=== PATIENT | female | born 1945 | race Caucasian/White ===

== ENCOUNTER → 2017-01-19 | Outpatient (CLI) | payer MEDICARE ==
--- NOTE | 2017-01-20 09:38 | MM ---
Reason for exam: screening (asymptomatic). Last mammogram was performed 1 year ago. History: Patient is postmenopausal. Taking estrogen for 5 years. Taking progesterone. Taking other hormone for 5 years. Physical Findings: A clinical breast exam by your physician is recommended on an annual basis and results should be correlated with mammographic findings. MG 3D Screening Mammo W/Cad Bilateral CC and MLO view(s) were taken. Prior study comparison: January 18, 2016, bilateral MG 3d screening mammo w/cad. January 15, 2015, bilateral MG screening mammo w CAD. The breast tissue is heterogeneously dense. This may lower the sensitivity of mammography. There are typically benign round calcifications in both breasts. There is no discrete abnormality. ASSESSMENT: Benign, BI-RAD 2 RECOMMENDATION: Routine screening mammogram of both breasts in 1 year.
== END | disposition home or self-care (01) ==
LOC: RADMAMWWP 08:59
PROVIDERS: ATTEND Internal Medicine Geriatric Medicine
DX: Z12.31 Encounter for screening mammogram for malignant neoplasm of breast (principal)
CPT/HCPCS: 77063; G0202

== ENCOUNTER → 2018-02-07 | Outpatient (CLI) | payer MEDICARE ==
--- NOTE | 2018-02-07 14:33 | XR ---
Cervical spine HISTORY: Neck pain 5 views of the cervical spine There is multilevel spondylosis and loss of disc height especially C3-4, C4-5, C5-6 and C6-7. Minimal retrolisthesis grade 1 C3-4, C4-5, anterolisthesis grade 1 C2-3, C7-T1. Surgical clips present in th e neck. Multilevel facet arthropathy. Bone mineralization is reduced. Vertebral body height is mainta ined. Foraminal encroachment present at C3-4, C4-5, C5-6 and C6-7 bilaterally. Vascular calcification s noted in the distribution of the carotid arteries. Lung apices are unremarkable. Odontoid view is l imited. IMPRESSION: Degenerative disc disease, facet arthropathy, neural foraminal encroachment.
--- NOTE | 2018-02-07 15:22 | FL ---
EXAMINATION TYPE: FL barium swallow DATE OF EXAM: 02/07/2018 COMPARISON: None HISTORY: GERD with esophagitis, history of hiatal hernia repair TECHNIQUE: A air contrast esophagram study is performed. FINDINGS: Fluoroscopy time: 1.03 minutes. Images: 27 Esophagus dilates to a normal caliber, has normal contour to the distal esophagus. At the distal esop hagus a large hiatal hernia is evident above the diaphragm. The esophagus enters the hiatal hernia ne ar the gastroesophageal junction region. Findings may be related to prior Edward fundoplication. Cont rast extends into the stomach as well as filling the hiatal hernia. IMPRESSIONS: 1. Moderately large hiatal hernia. 2. Postsurgical changes at the gastroesophageal junction
== END ==
LOC: RADFLWHC 09:18
PROVIDERS: ATTEND Internal Medicine Geriatric Medicine
DX: K44.9 Diaphragmatic hernia without obstruction or gangrene (principal); M50.31 Other cervical disc degeneration, high cervical region; M46.92 Unspecified inflammatory spondylopathy, cervical region; Z98.890 Other specified postprocedural states
CPT/HCPCS: 72050; 74220

== ENCOUNTER → 2018-02-19 | Outpatient (CLI) | payer MEDICARE ==
--- NOTE | 2018-02-19 09:39 | CT ---
EXAMINATION TYPE: CT abdomen pelvis wo con DATE OF EXAM: 02/19/2018 COMPARISON: None HISTORY: Lt flank pain, hematuria CT DLP: 356.1 mGycm Automated exposure control for dose reduction was used. TECHNIQUE: Helical acquisition of images from the lung bases through the pelvis. FINDINGS: Lack of intravenous contrast could compromise sensitivity of the exam. LUNG BASES: No significant abnormality is appreciated. AORTA: No significant abnormality is appreciataed. LIVER/GB: No significant abnormality is appreciated. PANCREAS: No significant abnormality is seen. SPLEEN: No significant abnormality is seen. ADRENALS: No significant abnormality is seen. KIDNEYS: No hydronephrosis. No hydroureter. The level of the distal left ureteral orifice suspect the re is a punctate calcification measuring only 1 to 2 mm. REPRODUCTIVE ORGANS: Not seen.. URINARY BLADDER: No significant abnormality is seen. BOWEL: No significant abnormality is seen. There is redundancy noted in the duodenum. FREE AIR: No Free Air is visible. ASCITES: None visible. PELVIC ADENOPATHY: None visualized. RETROPERITONEAL ADENOPATHY: No Retroperitoneal Adenopathy visible. OSSEOUS STRUCTURES: No significant abnormality is seen. IMPRESSION: NONOBSTRUCTIVE DISTAL LEFT URETERAL CALCULUS IS SUSPECTED. NONCONTRAST EXAM. PARTIAL INTRATHORACIC ST OMACH, PARAESOPHAGEAL HERNIA.
== END | disposition home or self-care (01) ==
LOC: RADCTMAIN 08:09
PROVIDERS: ATTEND Internal Medicine Geriatric Medicine
DX: K44.9 Diaphragmatic hernia without obstruction or gangrene (principal); N20.0 Calculus of kidney
CPT/HCPCS: 74176

== ENCOUNTER → 2018-03-06 | Outpatient (CLI) | payer MEDICARE ==
--- NOTE | 2018-03-06 15:31 | BD ---
EXAMINATION TYPE: Axial Bone Density DATE OF EXAM: 03/06/2018 CLINICAL HISTORY: Postmenopausal female. Osteoporosis screening. Height: 61.25 Weight: 158 FRAX RISK QUESTIONS: Alcohol (3 or more units per day): no Family History (Parent hip fracture): no Glucocorticoids (More than 3mos): no (Ex: prednisone, prednisolone, methylprednisolone, dexamethasone, and hydrocortisone). History of Fracture in Adulthood: no Secondary Osteoporosis: 1. Type 1 Diabetes: no 2. Hyperthyroidism: no 3. Menopause before 45: no 4. Malnutrition: no 5. Chronic liver disease: no Rheumatoid Arthritis: no Current Tobacco Use: no RISK FACTORS HISTORY OF: Family History of Osteoporosis: no Active: yes Diet low in dairy products/other sources of calcium: yes Postmenopausal woman: yes Take estrogen and/or progesterone medications: yes How long: about 18 years Lost more than 2 inches in height since high school: no Frequent falls: no Poor Health: no Hyperparathyroidism: no Adrenal Insufficiency: no MEDICATIONS: Prednisone or other steroids: no Thyroid Medications: no Osteoporosis Medications: no Additional Medications: Vitamin D Additional History: EXAM MEASUREMENTS: Bone mineral densitometry was performed using the [employer] System. Bone mineral density as measured about the Lumbar spine is: ----- L1-L4(G/cm2): 1.191 T Score Values are as follows: ----- L2: 0.1 ----- L3: 0.4 ----- L4: 0.3 ----- L1-L4: 0.1 Bone mineral density has: Increased 5.6% since study of: 01/18/2016 Bone mineral density about the R hip (g/cm2): 0.995 Bone mineral density about the L hip (g/cm2): 0.867 T Score values are as follows: -----R Neck: -0.3 -----L Neck: -1.2 -----R Total: 0.4 -----L Total: 0.3 Bone mineral density has: Increased 0.9% since study of: 01/18/2016 IMPRESSION: Osteopenia (T Score between -2.5 and -1). There is slightly increased risk of fracture and the patient may be considered for treatment. Re-Screen 2-5 years. NOTE: T-SCORE=SD OF THE YOUNG ADULT MEAN.
--- NOTE | 2018-03-07 12:56 | MM ---
Reason for exam: screening (asymptomatic). Last mammogram was performed 1 year and 2 months ago. History: Patient is postmenopausal. Taking estrogen for 5 years. Taking progesterone. Taking other hormone for 5 years. Physical Findings: A clinical breast exam by your physician is recommended on an annual basis and results should be correlated with mammographic findings. MG 3D Screening Mammo W/Cad Bilateral CC and MLO view(s) were taken. Prior study comparison: January 19, 2017, bilateral MG 3d screening mammo w/cad. January 18, 2016, bilateral MG 3d screening mammo w/cad. The breast tissue is heterogeneously dense. This may lower the sensitivity of mammography. There are benign appearing round calcifications bilaterally. There is no discrete abnormality. ASSESSMENT: Benign, BI-RAD 2 RECOMMENDATION: Routine screening mammogram of both breasts in 1 year.
== END | disposition home or self-care (01) ==
LOC: RADMAMWWP 11:42
PROVIDERS: ATTEND Internal Medicine Geriatric Medicine
DX: Z12.31 Encounter for screening mammogram for malignant neoplasm of breast (principal); M85.852 Other specified disorders of bone density and structure, left thigh
CPT/HCPCS: 77063; 77067; 77080

== ENCOUNTER → 2019-03-07 | Outpatient (CLI) | payer MEDICARE ==
--- NOTE | 2019-03-08 11:38 | MM ---
Reason for exam: screening (asymptomatic). Last mammogram was performed 1 year ago. History: Patient is postmenopausal. Taking estrogen for 5 years. Taking progesterone. Taking other hormone for 5 years. Physical Findings: A clinical breast exam by your physician is recommended on an annual basis and results should be correlated with mammographic findings. MG 3D Screening Mammo W/Cad Bilateral CC and MLO view(s) were taken. Prior study comparison: March 06, 2018, bilateral MG 3d screening mammo w/cad. January 19, 2017, bilateral MG 3d screening mammo w/cad. There are scattered fibroglandular densities. There are benign appearing round calcifications bilaterally. There is no discrete abnormality. ASSESSMENT: Benign, BI-RAD 2 RECOMMENDATION: Routine screening mammogram of both breasts in 1 year.
== END | disposition home or self-care (01) ==
LOC: RADMAMWWP 13:25
PROVIDERS: ATTEND Internal Medicine Geriatric Medicine
DX: Z12.31 Encounter for screening mammogram for malignant neoplasm of breast (principal)
CPT/HCPCS: 77063; 77067

== ENCOUNTER → 2019-11-04 | Outpatient (CLI) | payer MEDICARE ==
--- NOTE | 2019-11-05 10:10 | MM ---
Reason for exam: clinical finding. Last mammogram was performed 8 months ago. History: Patient is postmenopausal. Taking estrogen for 5 years. Taking progesterone. Taking other hormone for 5 years. Indicated problem(s): lump or thickening in the left breast. Physical Findings: Nurse did not find any significant physical abnormalities on exam. MG 3D Diag Mammo W/Cad LT CC and MLO view(s) were taken of the left breast. Prior study comparison: March 07, 2019, bilateral MG 3d screening mammo w/cad. March 06, 2018, bilateral MG 3d screening mammo w/cad. There are scattered fibroglandular densities. Scattered benign punctate and oil cyst calcifications. No significant new findings when compared with previous films. These results were verbally communicated with the patient and result sheet given to the patient on 11/04/19. ASSESSMENT: Incomplete: need additional imaging evaluation, BI-RAD 0 RECOMMENDATION: Ultrasound of the left breast. (physician palpated 7-8 o'clock area and patient palpated subareolar area)
--- NOTE | 2019-11-05 10:13 | USB ---
Reason for exam: additional evaluation requested from abnormal screening. History: Patient is postmenopausal. Taking estrogen for 5 years. Taking progesterone. Taking other hormone for 5 years. US Breast Limited LT Left limited breast ultrasound including focal area of concern, retroareolar and axilla demonstrates a 1.5 x 1.8 x 0.5cm focal duct ectasia behind the nipple with internal echoes at 9 o'clock, likely debris. No vascularity or convincing nodularity. Scanned 6-9 o'clock. These results were verbally communicated with the patient and result sheet given to the patient on 11/04/19. ASSESSMENT: Probably benign, BI-RAD 3 RECOMMENDATION: Follow-up diagnostic mammogram of both breasts in 4 months. Back on schedule for February 2020. Ultrasound of the left breast in 4 months.
== END | disposition home or self-care (01) ==
LOC: RADMAMWWP 13:16
PROVIDERS: ATTEND Family Medicine
DX: R92.8 Other abnormal and inconclusive findings on diagnostic imaging of breast (principal); N63.10 Unspecified lump in the right breast, unspecified quadrant; N63.11 Unspecified lump in the right breast, upper outer quadrant
CPT/HCPCS: 77065; 76642; G0279; 77061

== ENCOUNTER 2019-12-11 09:22 | Day surgery (SDC) | payer MEDICARE ==
[2019-12-09 12:29] VITALS: BMI 28.6
[2019-12-11 10:06] VITALS: RESP 16; TEMP 96.4
[2019-12-11] MEDS ORDERED: LIDOCAINE 1% (10MG/ML) FOR IV START INTRADERMA ONE (10:09)
[2019-12-11] MEDS: LACTATED RINGERS 1,000 ML IV SCH ×2 (10:09→10:31)
[2019-12-11] MEDS ORDERED: PROPOFOL 10 MG/ML 20 ML VIAL IV ONE (10:33)
--- NOTE | 2019-12-11 10:54 | P.PCN ---
Date of Procedure: 12/11/19 Procedure(s) Performed: BRIEF HISTORY: Patient is a 74-year-old, pleasant, white female scheduled for an upper endoscopy as a part of evaluation of long-standing history of GERD and history of Amato's esophagus.. PROCEDURE PERFORMED: Esophagogastroduodenoscopy with biopsy. PREOPERATIVE DIAGNOSIS: Long-standing history of GERD and history of Amato's. IV sedation per anesthesia. PROCEDURE: After informed consent was obtained, the patient was brought into the endoscopy unit. IV sedation was administered by Anesthesia under continuous monitoring. Initially the Olympus GIF-140 video endoscope was inserted into the mouth. Esophagus intubated without any difficulty. It was gradually advanced in to the stomach and duodenum and carefully examined. The bulb and the second part of the duodenum appeared normal. The scope at this time was withdrawn to the stomach, adequately insufflated with air, and upon careful examination, mucosa of the antrum, had mild gastritis and biopsies were done from this area. The body, cardia and the fundus appeared normal. The scope was then withdrawn into the esophagus. The GE junction was located at 35 cm from the incisors and appeared slightly irregular but no obvious evidence of Amato's esophagus.. Moderate size hiatal hernia noted. The esophagus appeared normal. There were no erosions or ulcerations seen and the patient tolerated the procedure well. IMPRESSION: 1. Small to moderate size hiatal hernia. No evidence of Amato's esophagus 2. Mild antral gastritis. RECOMMENDATIONS: The findings of this examination were discussed with the patient as well as a family. She was advised to follow with the biopsy results. She will continue with diet modification with.
[2019-12-11 11:10] VITALS: PULSE 63
[2019-12-11 11:26] VITALS: BP 147/89
== END 2019-12-11 12:04 | disposition home or self-care (01) ==
LOC: ORWHC2ENDO 09:22
PROVIDERS: ATTEND Internal Medicine Gastroenterology
DX: K29.50 Unspecified chronic gastritis without bleeding (principal); K44.9 Diaphragmatic hernia without obstruction or gangrene; K22.8 Other specified diseases of esophagus; F32.9 Major depressive disorder, single episode, unspecified; K21.9 Gastro-esophageal reflux disease without esophagitis; Z79.1 Long term (current) use of non-steroidal anti-inflammatories (NSAID); Z79.890 Hormone replacement therapy; Z79.899 Other long term (current) drug therapy; Z90.710 Acquired absence of both cervix and uterus; Z98.890 Other specified postprocedural states; K29.70 Gastritis, unspecified, without bleeding
CPT/HCPCS: 88305; 88342; 43239; J2704

== ENCOUNTER → 2020-03-09 | Outpatient (CLI) | payer MEDICARE ==
--- NOTE | 2020-03-09 15:03 | MM ---
Reason for exam: follow-up at short interval from prior study. Last mammogram was performed 4 months ago. History: Patient is postmenopausal. Taking estrogen for 5 years. Took progesterone for 10 years. Taking other hormone for 5 years. Physical Findings: Nurse Summary: nodule in the left breast at 6 o'clock (nurse padmini). MG 3D Diag Mammo W/Cad ELISE Bilateral CC and MLO view(s) were taken. Prior study comparison: November 04, 2019, left breast MG 3d diag mammo w/cad LT. March 07, 2019, bilateral MG 3d screening mammo w/cad. March 06, 2018, bilateral MG 3d screening mammo w/cad. January 19, 2017, bilateral MG 3d screening mammo w/cad. There are scattered fibroglandular densities. Stable inferior asymmetric density right MLO view. Stable asymmetric density lateral left CC view. Palpable marker placed by nurse at 6 o'clock. No significant new findings when compared with previous films. These results were verbally communicated with the patient and result sheet given to the patient on 03/09/20. ASSESSMENT: Incomplete: need additional imaging evaluation, BI-RAD 0 RECOMMENDATION: Ultrasound of the left breast.
--- NOTE | 2020-03-09 15:05 | USB ---
Reason for exam: additional evaluation requested from abnormal screening. History: Patient is postmenopausal. Taking estrogen for 5 years. Took progesterone for 10 years. Taking other hormone for 5 years. US Breast LT Left complete breast ultrasound includes all four quadrants, the retroareolar region and axilla. Finding demonstrates a 1.8 x 0.4 x 2.0cm duct ectasia at the posterior nipple, unchanged. 1.1cm hypoechoic area within, likely debris, 6 month follow up to reassess this intraluminal material. These results were verbally communicated with the patient and result sheet given to the patient on 03/09/20. ASSESSMENT: Probably benign, BI-RAD 3 RECOMMENDATION: Ultrasound of the left breast in 6 months.
== END | disposition home or self-care (01) ==
LOC: RADMAMWWP 13:32
PROVIDERS: ATTEND Family Medicine
DX: N63.20 Unspecified lump in the left breast, unspecified quadrant (principal); R92.8 Other abnormal and inconclusive findings on diagnostic imaging of breast
CPT/HCPCS: 77066; 76641; G0279; 77062

== ENCOUNTER → 2020-09-09 | Outpatient (CLI) | payer MEDICARE ==
--- NOTE | 2020-09-09 10:37 | USB ---
Reason for exam: clinical finding. History: Patient is postmenopausal. Taking estrogen for 5 years. Took progesterone for 10 years. Taking other hormone for 5 years. Indicated problem(s): palpable abnormality in the left breast. Physical Findings: Nurse Summary: palpated while in seated position, area marked by BB (nurse padmini). US Breast LT Left complete breast ultrasound includes all four quadrants, the retroareolar region and axilla. Finding demonstrates a 0.6 x 1.0 x 1.2cm oval, mixed lesion and duct ectasia at the posterior nipple. These results were verbally communicated with the patient and result sheet given to the patient on 09/09/20. ASSESSMENT: Suspicious, BI-RAD 4 RECOMMENDATION: Ultrasound core biopsy of the left breast. Called office with mammographic findings and has scheduled an appointment for the patient for 09/09/20 at 10:[address] Felipe. PRELIMINARY REPORT CALLED AND FAXED TO DR. FELIPE ON 09/09/20.
== END | disposition home or self-care (01) ==
LOC: RADUSWWP 09:30
PROVIDERS: ATTEND Family Medicine
DX: R92.8 Other abnormal and inconclusive findings on diagnostic imaging of breast (principal)

== ENCOUNTER → 2020-11-13 | Day surgery (SDC) | payer MEDICARE ==
[2020-11-13 09:47] VITALS: BP 151/86; PULSE 72; RESP 16; TEMP 98.3
--- NOTE | 2020-11-13 11:58 | USB ---
Left breast ultrasound INDICATION: Abnormal prior exam COMPARISON: 09/09/2020, 03/09/2020, 11/04/2019; 03/09/2020, 11/04/2019, 01/19/2017 FINDINGS: Limited retroareolar left breast ultrasound was performed. There is a subareolar collection has not s ignificantly changed by ultrasound since October 2019. Prior mammograms dating back to 2016 were reviewe d without significant change. IMPRESSION: No significant change in the left subareolar collection which is not significantly changed times at l [place] 12 months by ultrasound. Follow-up ultrasound is recommended in one year. Patient is due for her bilateral mammogram in February 2021. BI-RADS 3, probably benign.
== END ==
LOC: RADUSWWP 09:24
PROVIDERS: ATTEND Surgery
DX: N63.20 Unspecified lump in the left breast, unspecified quadrant (principal); Z53.8 Procedure and treatment not carried out for other reasons

== ENCOUNTER → 2021-03-11 | Outpatient (CLI) | payer MEDICARE ==
--- NOTE | 2021-03-12 09:16 | MM ---
Reason for exam: follow-up at short interval from prior study. Last mammogram was performed 1 year ago. History: Patient is postmenopausal. US discontinued breast bx LT of the left breast, November 13, 2020. Taking estrogen for 5 years. Took progesterone for 10 years. Taking other hormone for 5 years. Physical Findings: Nurse Summary: 1.5cm nodule in the left breast at 6 o'clock (nurse dw). MG 3D Diag Mammo W/Cad ELISE Bilateral CC and MLO view(s) were taken. Prior study comparison: September 09, 2020, left breast US breast LT. March 09, 2020, bilateral MG 3d diag mammo w/cad ELISE. November 04, 2019, left breast MG 3d diag mammo w/cad LT. March 07, 2019, bilateral MG 3d screening mammo w/cad. March 06, 2018, bilateral MG 3d screening mammo w/cad. There are scattered fibroglandular densities. Benign oil cyst calcifications. Palpable marker 6 o'clock left breast. No significant new findings when compared with previous films. These results were verbally communicated with the patient and result sheet given to the patient on 03/11/21. ASSESSMENT: Incomplete: need additional imaging evaluation, BI-RAD 0 RECOMMENDATION: Ultrasound of the left breast.
--- NOTE | 2021-03-12 09:19 | USB ---
Reason for exam: additional evaluation requested from abnormal screening. History: Patient is postmenopausal. US discontinued breast bx LT of the left breast, November 13, 2020. Taking estrogen for 5 years. Took progesterone for 10 years. Taking other hormone for 5 years. US Breast Limited LT Technologist: Michelle Cline Left limited breast ultrasound including focal area of concern, retroareolar and axilla demonstrates a stable 17 x 8 x 5mm subareolar collection at the nipple, back to at least 11/04/19. 1 year follow up recommended. Scanned subareolar and periareolar left breast. These results were verbally communicated with the patient and result sheet given to the patient on 03/11/21. ASSESSMENT: Probably benign, BI-RAD 3 RECOMMENDATION: Follow-up diagnostic mammogram of both breasts in 1 year. Ultrasound of the left breast in 1 year.
== END | disposition home or self-care (01) ==
LOC: RADMAMWWP 13:26
PROVIDERS: ATTEND Internal Medicine Geriatric Medicine
DX: R92.2 Inconclusive mammogram (principal)
CPT/HCPCS: 77066; 76642; G0279; 77062

== ENCOUNTER → 2022-05-16 | Outpatient (CLI) | payer MEDICARE ==
--- NOTE | 2022-05-16 09:05 | BD ---
EXAMINATION TYPE: Axial Bone Density DATE OF EXAM: 05/16/2022 COMPARISON: 03/06/2018 CLINICAL HISTORY: 76 years year old Female. ICD-10 CODE: Z78.0 asymptomatic, N95.1, M89.9 unsp bne d isorder Height: 60.25 Weight: 155.3 FRAX RISK QUESTIONS: Alcohol (3 or more units per day): NO Family History (Parent hip fracture): NO Glucocorticoids (More than 3mos): NO History of Fracture in Adulthood: NO Secondary Osteoporosis: 1. Type 1 Diabetes: NO 2. Hyperthyroidism: NO 3. Menopause before 45: NO 4. Malnutrition: NO 5. Chronic liver disease: NO Rheumatoid Arthritis: NO Current Tobacco Use: NO RISK FACTORS HISTORY OF: Hip Fracture (Right/Left): NO Spine Fracture: NO History of Wrist Fracture: NO Surgery to Spine/Hip(right/left)/Wrist (right/left): NO Family History of Osteoporosis: NO Active: YES Diet low in dairy products/other sources of calcium: NO Postmenopausal woman: YES Take estrogen and/or progesterone medications: BALBINA DIAL How long: PAST 2 YEARS Lost more than 2 inches in height since high school: NO Frequent falls: NO Poor Health: NO Hyperparathyroidism: NO Adrenal Insufficiency: NO MEDICATIONS: Prednisone or other steroids: NO Thyroid Medications: NO Osteoporosis Medications: NO Additional Medications: MELOXICAM, CITALOPRAM, VIT D, MULTI VIT, BIOTIN EXAM MEASUREMENTS: Bone mineral densitometry was performed using the [employer] System. Bone mineral density as measured about the Lumbar spine is: ----- L1-L4(G/cm2): 1.248 T Score Values are as follows: ----- L1: -0.3 ----- L2: 0.5 ----- L3: 0.5 ----- L4: 1.2 ----- L1-L4: 0.6 Bone mineral density has: INCREASED 4.7 % since study of: 03/06/2018 Bone mineral density about the R hip (g/cm2): 0.975 Bone mineral density about the L hip (g/cm2): 0.937 T Score values are as follows: -----R Neck: -0.5 -----L Neck: -0.7 -----R Total: 0.2 -----L Total: 0.9 Bone mineral density has: INCREASED 2.1 % since study of: 03/06/2018 FRAX%s: The graph provided illustrates a 9.5% chance for a major osteoporotic fx and a 1.4% chance fo r the hips probability for fx in 10 years time. IMPRESSION: Normal (Values between +1 and -1 indicate normal bone mass). Consider repeating this study in 5 year s or sooner if there is some new clinical indication. NOTE: T-SCORE=SD OF THE YOUNG ADULT MEAN.
== END | disposition home or self-care (01) ==
LOC: RADBDWWP 07:55
PROVIDERS: ATTEND Family Medicine
DX: M89.9 Disorder of bone, unspecified (principal); Z78.0 Asymptomatic menopausal state; Z79.52 Long term (current) use of systemic steroids
CPT/HCPCS: 77080

== ENCOUNTER → 2023-03-31 | Outpatient (CLI) | payer MEDICARE ==
--- NOTE | 2023-04-02 09:18 | MR ---
EXAMINATION TYPE: MR brain wo/w con DATE OF EXAM: 03/31/2023 6:38 PM CLINICAL INDICATION:Female, 77 years old with history of R26.9 ABNORMAL GAIT;, Abnormal gait, episode s of falling COMPARISON: 11/27/2015 TECHNIQUE: Multi planar, multi sequence imaging was performed through the brain including: T1, T2, In version recovery, susceptibility weighted imaging and gradient echo imaging and Diffusion weighted im aging. The patient was then given intravenous contrast and multi planar, T1 fat-saturation images wer e obtained. IV Contrast: 7 cc Gadavist FINDINGS: High T1 signal probable falx lipoma measuring up to 9 mm. Left frontal dural based extra-axial lesion measuring 14 x 8 mm (previously 13 x 7 mm) with homogenou s enhancement compatible with meningioma. After administration of gadolinium, no additional abnormal enhancement is seen. The fulton-white junctions, ventricular system, basal cisterns appear unremarkable. Diffusion-weighted imaging shows no evidence of restricted diffusion to suggest acute/subacute infarct. Intracranial ar terial flow voids are maintained. Midline structures show no abnormality. Scattered foci of high T2 s ignal intensity are seen within the periventricular white matter. The susceptibility weighted images do not reveal any evidence for micro-hemorrhage. The bone marrow signal is within normal limits. Paranasal sinuses and mastoid air cells: No significant paranasal sinus disease. Visualized orbits: Bilateral aphakia IMPRESSION: 1. No evidence of intracranial mass, acute/subacute infarct or suspicious intra-axial mass. 2. Left frontal dural based extra-axial lesion measuring 14 x 8 mm with homogenous enhancement compat ible with meningioma. This may be fractionally larger compared to prior. CT 3. Anterior falx lipoma. 4. Nonspecific white matter changes, likely related to small vessel ischemic disease.
== END | disposition home or self-care (01) ==
LOC: RADMRIMAIN 17:56
PROVIDERS: ATTEND Internal Medicine Geriatric Medicine
DX: G93.89 Other specified disorders of brain (principal); R26.9 Unspecified abnormalities of gait and mobility
CPT/HCPCS: 70553; A9585

== ENCOUNTER → 2024-12-20 | Outpatient (CLI) | payer MEDICARE ==
--- NOTE | 2024-12-20 15:32 | USB ---
Reason for Exam: Clinical finding. Patient History: Menarche at age 13. First Full-Term at age 27. Left ovary removed at age 55. Right ovary removed at age 55. Hysterectomy at age 55. Postmenopausal. Currently using Estrogen, for 5 years. Patient used Progesterone for 10 years. 11/13/2020, US discontinued breast bx LT on the left side. Risk Values: Theresa 5 year model risk: 1.9%. NCI Lifetime model risk: 3.1%. Technique: Method: Targeted. Prior Study Comparison: 11/04/2019 Left Diagnostic Mammogram, [facility]. 03/09/2020 Bilateral Diagnostic Mammogram, [facility]. 03/11/2021 Bilateral Diagnostic Mammogram, [facility]. Findings: The axilla of the left breast was scanned. Targeted axillary ultrasound at the patient's lump is a prominent but nonenlarged lymph node measuring 4.0 x 0.7 x 1.0 cm. Finding is likely reactive/post inflammatory. Uniform cortical thickening up to 3 mm. Otherwise, no other solid or cystic lesion is seen. Overall Assessment: Incomplete: need additional imaging evaluation, BI-RAD 0 Management: Diagnostic Mammogram of both breasts. Diagnostic Breast Ultrasound of the left breast in 3 months. Bilateral mammograms if the patient is overdue for her annual study. Follow-up ultrasound in 3 months for the borderline thickened and prominent but nonenlarged axillary node, likely reactive/post inflammatory. Results were given to the patient verbally at the time of exam. [facility], , 12/20/2024 3:09 PM. Electronically signed and approved by: Maral Weber M.D. Radiologist
== END | disposition home or self-care (01) ==
LOC: RADUSWWP 14:38
PROVIDERS: ATTEND Internal Medicine Geriatric Medicine
DX: N60.22 Fibroadenosis of left breast (principal); Z78.0 Asymptomatic menopausal state